=== PATIENT | female | born 1965 | race Caucasian/White ===

== ENCOUNTER → 2017-10-20 | Outpatient (CLI) | payer OTHER ==
[~2017-10-20] MED LIST: NKHM PO; PERCOCET 325 MG1 TA2 PO
== END | disposition home or self-care (01) ==
LOC: RESCLI 02:59
DX: N95.1 Menopausal and female climacteric states (principal); R07.89 Other chest pain; N94.10 Unspecified dyspareunia

== ENCOUNTER → 2017-10-23 | Outpatient (CLI) | payer OTHER ==
[2017-10-23 01:13] LABS: ALKALINE PHOSPHATASE 94 U/L (45-117); BUN 16 mg/dl (7-24); CHLORIDE 107 mmol/L (98-107); CREATININE 0.73 mg/dL (0.55-1.02); POTASSIUM 3.8 mmol/L (3.5-5.1); SGOT/AST 17 IU/L (3-35); SGPT/ALT 21 U/L (12-78); SODIUM 141 mmol/L (136-145); TOTAL PROTEIN 7.6 gm/dL (6.4-8.2)
[2017-10-23 01:19] LABS: HEMATOCRIT 40.8 % (37.0-47.0); HEMOGLOBIN 13.3 g/dl (12.0-16.0); MEAN CELL VOLUME 90.5 fl (81.0-99.0); MEAN CORPUSCULAR HGB 29.5 pg (27.0-31.0); MEAN CORPUSCULAR HGB CONC 32.6 g/dl (33.0-37.0); MEAN PLATELET VOLUME 10.6 fl (9.6-12.3); RED BLOOD COUNT 4.51 10*6/uL (4.10-5.10); RED CELL DISTRI WIDTH 12.3 % (0-14.5); WHITE BLOOD COUNT 8.2 10*3/uL (4.8-10.8)
== END | disposition home or self-care (01) ==
LOC: LAB 00:12
PROVIDERS: Internal Medicine
DX: Z00.01 Encounter for general adult medical examination with abnormal findings (principal); R79.89 Other specified abnormal findings of blood chemistry

== ENCOUNTER → 2017-11-04 | Outpatient (CLI) | payer OTHER ==
[~2017-11-04] MED LIST changes: +MULTIPLE VITAM1 EAC1 PO; +PROBIOTIC 15 B1 EACH PO; +VITAMIN D5000 UNIT PO; +ZANTAC 150150 MG PO
== END | disposition home or self-care (01) ==
LOC: CARD 03:38
DX: R07.89 Other chest pain (principal)

== ENCOUNTER → 2017-11-10 | Day surgery (SDC) | payer OTHER ==
[~2017-11-10] VITALS: Ht 157.4 cm; Wt 65.8 kg
--- NOTE | ~2017-11-10 | PROC NOTE ---
[place], [place] PROCEDURE NOTE NAME: JORGE REIS UNIT #: [id number] ROOM: DOCTOR: MARIANA VALENZUELA MD BIRTHDATE: [birth year] DOS: 11/10/2017 PREOPERATIVE DIAGNOSIS: Screening examination. POSTOPERATIVE DIAGNOSIS: Screening examination. PROCEDURE: Colonoscopy. ENDOSCOPIST: Mariana Valenzuela MD GALLERY DIRECTOR: BISI. ANESTHESIA: MAC. INDICATIONS: This is a 52-year-old lady who is here for a screening colonoscopy. The procedure and its complications were explained to the patient in detail preoperatively. Complications that were discussed included but were not limited to bleeding, missed lesions, colon perforation, and she agreed to proceed. DESCRIPTION OF PROCEDURE: After identifying the patient, the patient was brought to the endoscopy suite and placed in the left lateral position. After IV sedation was administered, a timeout procedure was called and a digital rectal exam was performed. This was within normal limits. An adult colonoscope was now introduced into the anal canal and advanced sequentially into the rectum, descending rectum, sigmoid colon, descending colon, transverse colon and ascending colon up to the cecum. Upon reaching the cecum, the scope was withdrawn. Total withdrawal time was approximately 7 minutes. The entire colon was visualized and it was within normal limits. There were no obvious lesions that could be seen. These findings were confirmed upon withdrawal of the scope. Upon withdrawal, the patient was brought back to the recovery room in stable fashion. There were no complications. Dr. Mariana Valenzuela, the attending endoscopist, was present throughout the operating case. Mariana Valenzuela MD CM:PROCNOTE:PROCEDURE NOTE [id number] MARIANA VALENZUELA MD
[2017-11-10 09:50] VITALS: BP 115/49
[2017-11-10 11:00] VITALS: BP 101/51
[2017-11-10 11:05] VITALS: BP 93/43
[2017-11-10 11:15] VITALS: BP 111/59
== END | disposition home or self-care (01) ==
LOC: SDC 11-06 08:00
DX: Z12.11 Encounter for screening for malignant neoplasm of colon (principal); Z79.899 Other long term (current) drug therapy; Z98.51 Tubal ligation status; Z98.890 Other specified postprocedural states; K21.9 Gastro-esophageal reflux disease without esophagitis; F41.9 Anxiety disorder, unspecified; Z82.49 Family history of ischemic heart disease and other diseases of the circulatory system

== ENCOUNTER → 2017-11-18 | Outpatient (CLI) | payer OTHER | END | disposition home or self-care (01) | LOC: RESCLI 04:15 | DX: Z12.31 Encounter for screening mammogram for malignant neoplasm of breast (principal); Z12.11 Encounter for screening for malignant neoplasm of colon; Z12.4 Encounter for screening for malignant neoplasm of cervix; R07.89 Other chest pain; K21.9 Gastro-esophageal reflux disease without esophagitis; N94.10 Unspecified dyspareunia ==

== ENCOUNTER → 2017-12-16 | Outpatient (CLI) | payer OTHER | END | disposition home or self-care (01) | LOC: MAMMO 12-04 08:00 | DX: Z12.31 Encounter for screening mammogram for malignant neoplasm of breast (principal) ==

== ENCOUNTER → 2018-05-21 | Outpatient (CLI) | payer OTHER | END | disposition home or self-care (01) | LOC: RESCLI 03:01 | DX: Z23 Encounter for immunization (principal); K21.9 Gastro-esophageal reflux disease without esophagitis; E55.9 Vitamin D deficiency, unspecified; M94.0 Chondrocostal junction syndrome [Tietze]; Z88.8 Allergy status to other drugs, medicaments and biological substances ==

== ENCOUNTER → 2018-12-16 | Outpatient (CLI) | payer OTHER ==
[~2018-12-16] MED LIST changes: +ANAPROX DS550 MG PO
== END | disposition home or self-care (01) ==
LOC: RESCLI
DX: T75.3XXD Motion sickness, subsequent encounter (principal); M70.61 Trochanteric bursitis, right hip; M46.1 Sacroiliitis, not elsewhere classified; M54.6 Pain in thoracic spine; L40.9 Psoriasis, unspecified; K21.9 Gastro-esophageal reflux disease without esophagitis; Z88.8 Allergy status to other drugs, medicaments and biological substances; Z79.899 Other long term (current) drug therapy

== ENCOUNTER 2019-03-10 19:43 | Emergency (ER) | payer OTHER ==
[~2019-03-10] VITALS: Ht 160 cm; Wt 67.1 kg
[~2019-03-10 19:43] MED LIST changes: -ANAPROX DS550 MG PO
[2019-03-10] MEDS ORDERED: ANAPROX DS550 MG PO (21:17)
== END 2019-03-10 21:39 | disposition home or self-care (01) ==
LOC: ED 19:43
DX: S80.212A Abrasion, left knee, initial encounter (principal); M25.561 Pain in right knee; Z79.899 Other long term (current) drug therapy; W01.0XXA Fall on same level from slipping, tripping and stumbling without subsequent striking against object, initial encounter; Y93.89 Activity, other specified; Y92.89 Other specified places as the place of occurrence of the external cause; Y99.8 Other external cause status

== ENCOUNTER 2021-09-07 08:12 | Emergency (ER) | payer OTHER ==
[~2021-09-07 08:12] MED LIST changes: +ANAPROX DS550 MG PO
== END 2021-09-07 08:42 | disposition home or self-care (01) ==
LOC: ED 08:12
DX: S00.83XA Contusion of other part of head, initial encounter (principal); Z79.899 Other long term (current) drug therapy; Z98.890 Other specified postprocedural states; Y08.89XA Assault by other specified means, initial encounter; Y93.89 Activity, other specified; Y92.89 Other specified places as the place of occurrence of the external cause; Y99.8 Other external cause status

== ENCOUNTER → 2021-09-13 | Outpatient (CLI) | payer OTHER | END | disposition home or self-care (01) | LOC: RESCLI 15:05 | PROVIDERS: ATTEND Internal Medicine | DX: M19.90 Unspecified osteoarthritis, unspecified site (principal); F32.0 Major depressive disorder, single episode, mild; Z79.899 Other long term (current) drug therapy ==

== ENCOUNTER → 2021-09-14 | Outpatient (CLI) | payer OTHER ==
[2021-09-14 21:25] LABS: BILIRUBIN Negative (Negative); BLOOD Negative (Negative); CLARITY Clear (Clear); COLOR Dark Yellow (Yellow); GLUCOSE Negative (Negative); KETONE Trace (Negative); LEUKO ESTERASE Negative (Negative); NITRITE Negative (Negative); SPECIFIC GRAVITY 1.025 (1.001-1.030); UROBILINOGEN 0.2 E.U./dl (0.0-1.0)
[2021-09-14 21:29] LABS: BASO % 0.5 % (0.0-1.0); EOS # 0.1 10*3/uL (0.0-0.4); EOS % 1.3 % (1.0-4.0); LYMPH # 2.8 10*3/uL (1.3-4.4); MEAN CELL VOLUME 89.8 fl (81.0-99.0); MEAN CORPUSCULAR HGB 29.9 pg (27.0-31.0); MEAN CORPUSCULAR HGB CONC 33.3 g/dl (33.0-37.0); MEAN PLATELET VOLUME 9.8 fl (9.6-12.3); MONO # 0.5 10*3/uL (0.1-1.0); NEUT # 4.1 10*3/uL (2.3-7.9); NEUT % 53.9 % (47.0-73.0); PLATELET COUNT AUTOMATED 263 10*3/uL (130-400); RED BLOOD COUNT 4.79 10*6/uL (4.10-5.10); RED CELL DISTRI WIDTH 12.4 % (0-14.5); WHITE BLOOD COUNT 7.5 10*3/uL (4.8-10.8)
[2021-09-14 21:46] LABS: RBC 0-2 rbc/hpf (0-2); WBC 0-2 wbc/hpf (0-5)
[2021-09-14 21:51] LABS: ALKALINE PHOSPHATASE 83 U/L (45-117); BUN 16 mg/dl (7-24); CHLORIDE 110 mmol/L (98-107); CHOLESTEROL 239 mg/dL (<200); CREATININE 0.57 mg/dL (0.55-1.02); LDL CHOLESTEROL 131 mg/dL (9-159); POTASSIUM 3.9 mmol/L (3.5-5.1); SGOT/AST 13 IU/L (3-35); SGPT/ALT 26 U/L (12-78); SODIUM 139 mmol/L (136-145); TOTAL PROTEIN 7.8 gm/dL (6.4-8.2); TRIGLYCERIDES 63 mg/dl (<150)
[2021-09-17 14:07] LABS: ANTI-DSDNA ANTIBODIES <1 IU/mL (0-9); ANTI-RNP ANTIBODIES <0.2 AI (0.0-0.9); ANTICHROMATIN ANTIBODIES <0.2 AI (0.0-0.9); ANTISCLERODERMA-70 AB <0.2 AI (0.0-0.9); SJOGREN ANTI-SS-A <0.2 AI (0.0-0.9); SJOREN AB, ANTI-SS-B <0.2 AI (0.0-0.9)
== END | disposition home or self-care (01) ==
LOC: LAB 20:43
PROVIDERS: ATTEND Internal Medicine Nephrology
DX: M19.90 Unspecified osteoarthritis, unspecified site (principal); Z79.899 Other long term (current) drug therapy

== ENCOUNTER 2021-09-19 22:47 | Emergency (ER) | payer OTHER ==
[~2021-09-19] VITALS: Ht 157.4 cm; Wt 63.5 kg
[2021-09-20 00:33] LABS: SGPT/ALT 21 U/L (12-78)
[2021-09-21 09:07] LABS: HEPATITIS B SURFACE AB Reactive (.)
== END 2021-09-20 01:10 | disposition home or self-care (01) ==
LOC: ED 22:47
PROVIDERS: Physician Assistant
DX: S60.413A Abrasion of left middle finger, initial encounter (principal); Z79.899 Other long term (current) drug therapy; Z98.890 Other specified postprocedural states; W46.0XXA Contact with hypodermic needle, initial encounter; Y93.89 Activity, other specified; Y92.89 Other specified places as the place of occurrence of the external cause; Y99.8 Other external cause status

== ENCOUNTER → 2021-09-27 | Outpatient (CLI) | payer OTHER | END | disposition home or self-care (01) | LOC: RAD 09:20 | PROVIDERS: ATTEND Nurse Practitioner Family | DX: S00.83XD Contusion of other part of head, subsequent encounter (principal); R51.9 Headache, unspecified; X58.XXXD Exposure to other specified factors, subsequent encounter ==

== ENCOUNTER → 2021-10-30 | Outpatient (CLI) | payer OTHER | END | disposition home or self-care (01) | LOC: RESCLI 10-29 10:09 | PROVIDERS: ATTEND Emergency Medicine | DX: M19.90 Unspecified osteoarthritis, unspecified site (principal); K21.9 Gastro-esophageal reflux disease without esophagitis; F41.9 Anxiety disorder, unspecified; F43.23 Adjustment disorder with mixed anxiety and depressed mood; M25.511 Pain in right shoulder; G89.29 Other chronic pain; Z79.899 Other long term (current) drug therapy ==

== ENCOUNTER → 2022-02-13 | Outpatient (CLI) | payer OTHER | END | disposition home or self-care (01) | LOC: RESCLI 01:55 | PROVIDERS: ATTEND Internal Medicine | DX: U07.1 COVID-19 (principal); E55.9 Vitamin D deficiency, unspecified; E56.9 Vitamin deficiency, unspecified; Z79.899 Other long term (current) drug therapy; Z79.82 Long term (current) use of aspirin ==

== ENCOUNTER → 2022-05-07 | Outpatient (CLI) | payer OTHER | END | disposition home or self-care (01) | LOC: RESCLI 10:33 | PROVIDERS: ATTEND Internal Medicine | DX: R00.1 Bradycardia, unspecified (principal); R07.89 Other chest pain; F43.20 Adjustment disorder, unspecified; E56.9 Vitamin deficiency, unspecified; E55.9 Vitamin D deficiency, unspecified; Z82.49 Family history of ischemic heart disease and other diseases of the circulatory system; Z98.890 Other specified postprocedural states; Z79.899 Other long term (current) drug therapy ==

== ENCOUNTER → 2022-06-05 | Outpatient (CLI) | payer OTHER | END | disposition home or self-care (01) | LOC: RESCLI 01:10 | PROVIDERS: ATTEND Family Medicine | DX: Z12.31 Encounter for screening mammogram for malignant neoplasm of breast (principal); Z12.4 Encounter for screening for malignant neoplasm of cervix; K21.9 Gastro-esophageal reflux disease without esophagitis; Z82.49 Family history of ischemic heart disease and other diseases of the circulatory system; Z72.89 Other problems related to lifestyle; Z98.890 Other specified postprocedural states; Z79.899 Other long term (current) drug therapy ==

== ENCOUNTER → 2022-08-29 | Outpatient (CLI) | payer OTHER ==
[2022-08-29 17:39] LABS: BASO % 0.6 % (0.0-1.0); EOS # 0.1 10*3/uL (0.0-0.4); EOS % 1.3 % (1.0-4.0); HEMATOCRIT 42.1 % (37.0-47.0); LYMPH # 1.6 10*3/uL (1.3-4.4); LYMPH % 30.1 % (27.0-41.0); MEAN CELL VOLUME 90.9 fl (81.0-99.0); MEAN CORPUSCULAR HGB 30.5 pg (27.0-31.0); MEAN CORPUSCULAR HGB CONC 33.5 g/dl (33.0-37.0); MEAN PLATELET VOLUME 9.8 fl (9.6-12.3); MONO # 0.7 10*3/uL (0.1-1.0); MONO % 13.8 % (3.0-9.0); NEUT # 2.9 10*3/uL (2.3-7.9); PLATELET COUNT AUTOMATED 231 10*3/uL (130-400); RED BLOOD COUNT 4.63 10*6/uL (4.10-5.10); RED CELL DISTRI WIDTH 12.6 % (0-14.5); WHITE BLOOD COUNT 5.4 10*3/uL (4.8-10.8)
[2022-08-29 17:59] LABS: ALKALINE PHOSPHATASE 84 U/L (46-116); BUN 10 mg/dl (9-23); CHLORIDE 105 mmol/L (98-107); SGPT/ALT 18 U/L (10-49); TOTAL PROTEIN 7.2 gm/dL (6.0-8.0)
== END | disposition home or self-care (01) ==
LOC: LAB 16:57
PROVIDERS: ATTEND Internal Medicine
DX: R05.9 Cough, unspecified (principal); R53.83 Other fatigue; Z20.822 Contact with and (suspected) exposure to COVID-19

== ENCOUNTER → 2022-09-02 | Outpatient (CLI) | payer OTHER | END | disposition home or self-care (01) | LOC: CANPRECLI → RESCLI 00:30 | PROVIDERS: ATTEND Internal Medicine | DX: Z53.9 Procedure and treatment not carried out, unspecified reason (principal) ==

== ENCOUNTER → 2023-04-16 | Outpatient (CLI) | payer OTHER | END | disposition home or self-care (01) | LOC: RAD 08:05 | PROVIDERS: ATTEND Internal Medicine | DX: M79.9 Soft tissue disorder, unspecified (principal) ==

== ENCOUNTER → 2023-11-26 | Outpatient (CLI) | payer OTHER | END | disposition home or self-care (01) | LOC: CARD 01:30 | PROVIDERS: ATTEND Family Medicine | DX: Z12.31 Encounter for screening mammogram for malignant neoplasm of breast (principal); I20.89 Other forms of angina pectoris ==

== ENCOUNTER → 2023-12-08 | Outpatient (CLI) | payer OTHER ==
[~2023-12-08] MED LIST changes: +OMEPRAZOLE40 MG PO; +Technetium Tc 99M Tetrofosmi 0.23 MG KIT IJ SCH
== END | disposition home or self-care (01) ==
LOC: CARD 01:03
PROVIDERS: ATTEND Internal Medicine Cardiovascular Disease
DX: I20.89 Other forms of angina pectoris (principal)

== ENCOUNTER 2024-03-10 21:09 | Emergency (ER) | payer OTHER ==
[~2024-03-10] VITALS: Ht 158.7 cm; Wt 66.7 kg
[~2024-03-10 21:09] MED LIST changes: -Technetium Tc 99M Tetrofosmi 0.23 MG KIT IJ SCH
[2024-03-10 21:34] LABS: BASO % 0.5 % (0.0-1.0); EOS % 0.5 % (1.0-4.0); HEMATOCRIT 43.5 % (37.0-47.0); LYMPH # 2.4 10*3/uL (1.3-4.4); LYMPH % 28.6 % (27.0-41.0); MEAN CELL VOLUME 90.6 fl (81.0-99.0); MEAN CORPUSCULAR HGB CONC 33.1 g/dl (33.0-37.0); MEAN PLATELET VOLUME 9.8 fl (9.6-12.3); MONO # 0.6 10*3/uL (0.1-1.0); MONO % 6.8 % (3.0-9.0); NEUT # 5.4 10*3/uL (2.3-7.9); NEUT % 63.2 % (47.0-73.0); PLATELET COUNT AUTOMATED 266 10*3/uL (130-400); RED CELL DISTRI WIDTH 12.5 % (0-14.5); WHITE BLOOD COUNT 8.5 10*3/uL (4.8-10.8)
[2024-03-10 21:45] LABS: ACT PARTIAL THROMBO TIME 29.3 SECONDS (20.0-32.1)
[2024-03-10] MEDS ORDERED: SODIUM CHLORIDE 0.9% 1,000 ML IV ONE (21:50)
[2024-03-10 21:56] LABS: BILIRUBIN Negative (Negative); BLOOD Negative (Negative); CLARITY Turbid (Clear); COLOR Yellow (Yellow); GLUCOSE Negative (Negative); KETONE Trace (Negative); LEUKO ESTERASE Negative (Negative); NITRITE Negative (Negative); PH 8.5 (4.5-8.0)
[2024-03-10 22:01] LABS: ALKALINE PHOSPHATASE 100 U/L (46-116); BUN 10 mg/dl (9-23); CHLORIDE 106 mmol/L (98-107); POTASSIUM 3.3 mmol/L (3.4-5.1); SGPT/ALT 16 U/L (5-49); TOTAL PROTEIN 7.7 gm/dL (6.0-8.0)
[2024-03-10 22:06] LABS: RBC 0-2 rbc/hpf (0-2); WBC 0-2 wbc/hpf (0-5)
[2024-03-10] MEDS ORDERED: CYCLOBENZAPRINE5 M3 PO (22:22)
[2024-03-10] MEDS ORDERED: CELECOXIB50 MG PO (22:22)
== END 2024-03-11 00:56 | disposition home or self-care (01) ==
LOC: ED 21:09
PROVIDERS: Emergency Medicine
DX: R00.2 Palpitations (principal); R00.0 Tachycardia, unspecified; Z79.899 Other long term (current) drug therapy; Z98.890 Other specified postprocedural states; Z98.51 Tubal ligation status; Z90.721 Acquired absence of ovaries, unilateral

== ENCOUNTER → 2024-04-20 | Outpatient (CLI) | payer OTHER ==
[~2024-04-20] MED LIST changes: +CELECOXIB50 MG PO; +CYCLOBENZAPRINE5 M3 PO
[2024-04-20 15:53] LABS: BASO # 0.1 10*3/uL (0.0-0.1); BASO % 0.7 % (0.0-1.0); EOS # 0.1 10*3/uL (0.0-0.4); EOS % 1.6 % (1.0-4.0); HEMATOCRIT 41.6 % (37.0-47.0); LYMPH # 2.6 10*3/uL (1.3-4.4); LYMPH % 34.2 % (27.0-41.0); MEAN CELL VOLUME 91.4 fl (81.0-99.0); MEAN CORPUSCULAR HGB 30.3 pg (27.0-31.0); MEAN CORPUSCULAR HGB CONC 33.2 g/dl (33.0-37.0); MEAN PLATELET VOLUME 9.7 fl (9.6-12.3); MONO # 0.5 10*3/uL (0.1-1.0); MONO % 7.2 % (3.0-9.0); NEUT # 4.2 10*3/uL (2.3-7.9); PLATELET COUNT AUTOMATED 259 10*3/uL (130-400); RED BLOOD COUNT 4.55 10*6/uL (4.10-5.10); RED CELL DISTRI WIDTH 12.8 % (0-14.5); WHITE BLOOD COUNT 7.5 10*3/uL (4.8-10.8)
[2024-04-20 16:18] LABS: ALKALINE PHOSPHATASE 87 U/L (46-116); BUN 12 mg/dl (9-23); CHLORIDE 108 mmol/L (98-107); POTASSIUM 4.1 mmol/L (3.4-5.1); SGPT/ALT 15 U/L (5-49); TOTAL PROTEIN 7.2 gm/dL (6.0-8.0)
== END | disposition home or self-care (01) ==
LOC: LAB 15:33
PROVIDERS: ATTEND Internal Medicine Cardiovascular Disease
DX: R00.2 Palpitations (principal)

== ENCOUNTER → 2025-05-30 | Outpatient (CLI) | payer OTHER | END | disposition home or self-care (01) | LOC: MAMMO 10:20 | PROVIDERS: ATTEND Family Medicine | DX: Z12.31 Encounter for screening mammogram for malignant neoplasm of breast (principal); R92.323 Mammographic fibroglandular density, bilateral breasts ==

== ENCOUNTER → 2025-07-04 | Outpatient (CLI) | payer OTHER | END | disposition home or self-care (01) | LOC: RESCLI 11:49 | PROVIDERS: ATTEND Internal Medicine | DX: J01.90 Acute sinusitis, unspecified (principal); K21.9 Gastro-esophageal reflux disease without esophagitis; Z79.899 Other long term (current) drug therapy ==